=== PATIENT | female | born 1975 | race Two or more races ===

== ENCOUNTER 2023-01-27 08:51 | Outpatient (CLI) | payer BC, OTHER ==
[2023-01-27 09:12] LABS: *BILIRUBIN,URIN NEGATIVE (NEGATIVE); *BLOOD, URINE NEGATIVE (NEGATIVE); *CLARITY,URINE CLEAR (CLEAR); *COLOR,URINE YELLOW (YELLOW); *KETONES,URINE NEGATIVE (NEGATIVE); *UROBILINOGEN,URINE 0.2 E.U./dl (NORMAL); HEMATOCRIT 37.7 % (31.2-41.9); LEUKOCYTE ESTERASE ,URINE NEGATIVE (NEGATIVE); MEAN CORPUSCULAR HEMOGLOBIN 26.2 uug (24.7-32.8); MEAN CORPUSCULAR VOLUME 79.8 fL (75.5-95.3); NITRITE, URINE NEGATIVE (NEGATIVE); PLATELET COUNT (AUTO) 247 K/uL (179-408); UGLUCOSE NEGATIVE (NEGATIVE)
[2023-01-27 10:00] LABS: CREATININE 0.7 mg/dL (0.6-1.3); POTASSIUM 3.8 mmol/L (3.5-5.1)
[2023-01-27 10:43] LABS: RBC,URINE 0-3 /HPF (0-3)
[2023-01-27 10:44] LABS: BACTERIA,URINE MODERATE /HPF (NONE SEEN); SQUAMOUS EPITHELIAL CELL,UR MODERATE /HPF (NONE SEEN); WBC,URINE NONE SEEN /HPF (0-3)
== END 2023-01-27 23:59 | disposition home or self-care (01) ==
LOC: LAB 08:51
PROVIDERS: ATTEND Family Medicine
DX: D70.9 Neutropenia, unspecified (principal); R31.9 Hematuria, unspecified; R73.9 Hyperglycemia, unspecified
CPT/HCPCS: 36415; 85025